=== PATIENT | male | born 1975 | race Caucasian/White ===

== ENCOUNTER 2025-09-19 07:42 | Emergency (ER) | payer MEDICAID, MEDICARE ==
[~2025-09-19] VITALS: Ht 175.3 cm; Wt 72.7 kg
[2025-09-19 07:47] VITALS: BP 124/73; PULSE 62; RESP 12; TEMP 97.7; O2SAT 100
--- NOTE | 2025-09-19 09:28 | Physician Documentation ---
History of Present Illness ~ General Chief Complaint: See Chief Complaint Stated Complaint: GEN WEAKNESS Time Seen by MD: 09:11 History of Present Illness Initial Comments 50-year-old male presents to the ED with nonspecific complaints including genera l weakness times a year 10 and 0 10 pain without any acute injury. Patient is not forthcoming about his presentation. However he is sleeping undisturbed in his hospital [facility]. Easily arousable Medication Reconciliation Allergies: Coded Allergies: No Known Allergies (Unverified , 10/01/18) Past Medical History Past Medical History: No Pertinent History Past Surgical History: noncontributory Drug Use: methamphetamine Occupation: unemployed Review of Systems All Other Systems at this time: Reviewed and Negative ROS As stated above in the HPI, otherwise all systems are reviewed and negative. Physical Exam Physical Exam Vital Signs: Temperature: 97.7, Source: Oral, Heart Rate: 62, Respiratory Rate: 12, BP: 124/73, Pulse Oximetry: 100, Weight: 72.730 Oxygen Flow Rate: 0 Physical Exam General: Alert, no apparent distress. Respiratory: Lungs clear, no respiratory distress. Cardiovascular: Regular rate and rhythm, no murmurs. Gastrointestinal: Soft, nontender, nondistended. Bowels sounds present. Neurologic: Oriented x4. Psychiatric: Normal mood and affect. Skin: Normal color, warm and dry. No edema, no ecchymosis. Progress Results/Orders Results/Orders Vital Signs 09/19/25 09/19/25 07:47 09:50 Temp 97.7 Pulse 62 Resp 12 B/P (MAP) 124/73 Pulse Ox 100 O2 Flow Rate 0 Medical Decision Making Additional information obtaine: old records Findings 50-year-old male does not present with any acute illness based on my physical exam and initial observation. He is not forthcoming about why he is here. According to EMS report is mostly just nonspecific complaints patient's vitals are reassuring as well. Do not see any reason to pursue further emergent management at this time I am going to discharge him with the advice to follow up with the Differential Diagnosis 1 Departure Disposition: 01 HOME / SELF CARE / HOMELESS Impression: Primary Impression: Homeless Condition: Stable Discharge Instructions: General Discharge Instructions Referrals: NO PRIMARY CARE PROVIDER (PCP) Education Educated: Patient Educated regarding: diagnosis Signature Scribe Signature: f Attestation: Scribed for Williams Au Electrical Timing Device Calibrator by Williams Carey NP . 09/19/25 09:28 WILLIAMS AU NP Sep 19, 2025 09:28
== END 2025-09-19 09:50 | disposition home or self-care (01) ==
LOC: ER 07:42
DX: R53.1 Weakness (principal); Z59.00 Homelessness unspecified; Z56.0 Unemployment, unspecified; F15.90 Other stimulant use, unspecified, uncomplicated
CPT/HCPCS: 99283

== ENCOUNTER 2025-11-20 04:52 | Emergency (ER) | payer MEDICAID ==
[~2025-11-20] VITALS: Ht 172.7 cm; Wt 72.7 kg
[2025-11-20 05:07] VITALS: BP 124/85; PULSE 88; RESP 16; TEMP 98.9; O2SAT 100
== END 2025-11-20 08:47 | disposition left against medical advice (07) ==
LOC: ER 04:52
DX: J32.9 Chronic sinusitis, unspecified (principal); Z53.21 Procedure and treatment not carried out due to patient leaving prior to being seen by health care provider
CPT/HCPCS: 99281